=== PATIENT | male | born 2005 | race Caucasian/White ===

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

== ENCOUNTER 2024-01-20 03:58 | Emergency (ER) | payer OTHER ==
[~2024-01-20] VITALS: Ht 182.9 cm; Wt 93.0 kg
[2024-01-20 04:06] VITALS: BP 127/70; PULSE 82; RESP 18; TEMP 97.5; O2SAT 97
[2024-01-20 04:23] VITALS: O2SAT 99
[2024-01-20] MEDS ORDERED: IBUP-2213 PO (04:35)
[2024-01-20] MEDS: IBUPROFEN 800 MG TAB PO ONE (05:12)
[2024-01-20 05:19] VITALS: BP 109/57; PULSE 82; RESP 17; TEMP 98.1; O2SAT 99
== END 2024-01-20 05:12 | disposition home or self-care (01) ==
LOC: MED 03:58
DX: S82.492A Other fracture of shaft of left fibula, initial encounter for closed fracture (principal); Z79.899 Other long term (current) drug therapy; W22.8XXA Striking against or struck by other objects, initial encounter; Y93.89 Activity, other specified; Y92.89 Other specified places as the place of occurrence of the external cause; Y99.8 Other external cause status
CPT/HCPCS: 29515; 73610; 99283; Q0092